=== PATIENT | female | born 1935 | race Caucasian/White ===

== ENCOUNTER 2016-04-17 14:40 | Emergency (ER) | payer OTHER, BC ==
--- NOTE | 2016-04-17 16:22 | EDPHY ---
H & P Time Seen by Provider: 04/17/16 15:51 HPI/ROS: HPI Cold symptoms. 81-year-old female by private vehicle from [facility] assisted [facility]. She reports having cold symptoms which she describes as nasal congestion, postnasal drip and associated cough, worst at night with the postnasal drip ongoing for the last 5 weeks. She reports that 2 weeks ago she started feeling better but then started having a cough again with nasal congestion and rhinorrhea. She also has been feeling fatigued. She is concerned that she has developed pneumonia. ROS: Constitutional: No fever, no chills. N as above. Eyes: No discharge. No changes in vision. ENT: No sore throat. As above. Respiratory: As above. No shortness of breath. Cardiac: No chest pain, no palpitations. Gastrointestinal: No abdominal pain, no vomiting, no diarrhea. Genitourinary: No hematuria. No dysuria or increased frequency with urination. Musculoskeletal: No back pain. No neck pain. No myalgias or arthralgias. Skin: No rashes. Neurological: No headache. No focal weakness or altered sensation. Past medical history: Hypothyroid. Social history: Here by herself. As above. Physical Exam: General Appearance: Alert, no distress. This patient is responding to questions appropriately and in full sentences. This patient appears well- hydrated and well-nourished. Eyes: Pupils equal and round no pallor or injection. No lid edema, erythema or injection. ENT, Mouth: Mucous membranes are moist. The pharyngeal tissues are unremarkable. No edema or swelling. No asymmetry suggestive of abscess. No erythema or exudates. Respiratory: There are no retractions, lungs are clear to auscultation with good air movement bilaterally. Cardiovascular: Regular rate and rhythm. No murmur. Neurological: Motor sensory function is grossly intact. Cranial nerves are normal. Gait is normal. Skin: Warm and dry, no rashes. Musculoskeletal: Neck is supple and nontender. Extremities are symmetrical. All joints range without pain or impingement. Psychiatric: No agitation. No depression. Database: EKG: Imaging: Chest x-ray PA and lateral; the cardiac mediastinal silhouette is unremarkable. No evidence of infiltrate or pneumothorax. Probable bronchitis. No other acute cardiopulmonary disease process noted. Interpreted by me. Procedures: Emergency department course: Patient sent for chest x-ray. Vital signs were reviewed. She was mildly tachycardic in triage. Patient declined IV. 4:50 p.m., patient re-evaluated. She is resting comfortably at this time. I discussed the results of her x-ray with her. Her tachycardia has resolved. She is afebrile. She will be started on azithromycin for possible early pneumonia. She was given 500 mg orally in the emergency department and she also received 200 mg of Tessalon Perle. I discussed admission for observation. She does not want to be admitted at this time. She does feel comfortable going home. She states that it will be easy for her to return to the emergency department should her condition worsen or should she not be improving over the next couple of days. Return to emergency department precautions were thoroughly reviewed with her. Follow-up was discussed. All of her questions were answered. She was discharged in good condition. Differential Diagnosis: The differential diagnosis on this patient includes but is not limited to bronchitis, viral syndrome, pneumonitis. This represents a partial list of diagnoses considered. These considerations are based on history, physical exam , past history, reassessment and diagnostic testing. Smoking Status: Never smoked Constitutional: Initial Vital Signs Temperature (C) 36.5 C 04/17/16 14:42 Heart Rate 102 H 04/17/16 14:42 Respiratory Rate 16 04/17/16 14:42 Blood Pressure 121/82 H 04/17/16 14:42 O2 Sat (%) 95 04/17/16 14:42 O2 Delivery Mode Room Air Allergies/Adverse Reactions: No Known Allergies Allergy (Unverified 04/17/16 14:45) Home Medications: Medication Instructions Recorded Azithromycin [Zithromax] 250 mg PO DAILY #6 tab 04/17/16 Benzonatate [Tessalon Pearles] 100 mg PO TID #12 cap 04/17/16 Levothyroxine 04/17/16 Departure - Departure Disposition: Home, Routine, Self-Care Clinical Impression: Bronchitis, Upper respiratory infection Condition: Good Instructions: Acute Bronchitis (ED), Upper Respiratory Infection (ED) Additional Instructions: Read and follow provided instructions. Take medication as prescribed. Take antibiotics through entire course of treatment. Follow-up with your primary care physician in 2-3 days for re-evaluation even if your symptoms are improving. Take medication as prescribed. Most importantly, return to the emergency department immediately for worsening symptoms such as worsening cough, fever, difficulty breathing or other serious concerns. Return to the emergency department for re-evaluation on Wednesday if you have not had any improvement in your symptoms. Referrals: Mady Valero MD [Primary Care Provider] - As per Instructions Prescriptions: Benzonatate [Tessalon Pearles] 100 mg PO TID #12 cap Azithromycin [Zithromax] 250 mg PO DAILY #6 tab
[2016-04-17] MEDS ORDERED: BENZONATATE 100 MG CAP PO ONE (16:53)
[2016-04-17] MEDS ORDERED: AZITHROMYCIN 250 MG TAB PO ONE (16:53)
--- NOTE | 2016-04-17 17:31 | DX ---
PA lateral chest x-ray 1600 hours. History: Chest pain with cough and congestion for 5 weeks. Weakness. Findings: Heart size and pulmonary vasculature appear to be normal. There is moderate atherosclerotic calcification of the thoracic aorta. There is no consolidation, effusion, or pneumothorax. No signif icant bronchial wall thickening is appreciated. Mild fibrotic streaks are suspected at the left base. Mild degenerative changes are noted mid to lower thoracic spine. Impression: 1. No active cardiopulmonary disease seen. 2. Moderate atherosclerotic calcification of the thoracic aorta noted.
[2016-04-17 17:32] VITALS: BP 124/69; PULSE 80; RESP 18; TEMP 97.9; O2SAT 96
== END 2016-04-17 17:33 | disposition home or self-care (01) ==
DX: J20.9 Acute bronchitis, unspecified (principal); J06.9 Acute upper respiratory infection, unspecified

== ENCOUNTER 2016-09-08 15:41 | Inpatient (IN) | payer OTHER, BC ==
[2016-09-08] MEDS ORDERED: ONDANSETRON 4 MG/2 ML VIAL ONE ×2 (16:00→16:48)
[2016-09-08] MEDS ORDERED: ALTEPLASE 100 MG/100 ML VIAL IV ONE (16:02)
[2016-09-08] MEDS ORDERED: LABETALOL HCL 5 MG/ML 20 ML MDV IVP ONE (16:07)
[2016-09-08 16:08] LABS: % IMMATURE GRANULYOCYTES 0.2 % (0.0-1.1); ABSOLUTE IMMATURE GRANULOCYTES 0.02 10^3/uL (0.00-0.10); ADD DIFF? NO; ADD MORPH? NO; ADD SCAN? NO; ATYPICAL LYMPHOCYTE FLAG 0 (0-99); FRAGMENT RBC FLAG 20 (0-99); HEMATOCRIT 40.5 % (38.0-47.0); HEMOGLOBIN 13.9 g/dL (12.6-16.3); LEFT SHIFT FLG 0 (0-99); LIPEMIA HEMOLYSIS FLAG 90 (0-99); MEAN CELL HEMOGLOBIN 31.8 pg (27.9-34.1); MEAN CELL HEMOGLOBIN CONCENTR. 34.3 g/dL (32.4-36.7); MEAN CELL VOLUME 92.7 fL (81.5-99.8); MEAN PLATELET VOLUME 10.9 fL (8.7-11.7); PLATELET CLUMPS FLAG 10 (0-99); PLATELET COUNT 246 10^3/uL (150-400); RED BLOOD CELL COUNT 4.37 10^6/uL (4.18-5.33); RED CELL DISTRIBUTION WIDTH 13.5 % (11.5-15.2)
--- NOTE | 2016-09-08 16:10 | CPEKG ---
Heart Rate: 83 RR Interval: 723 P-R Interval: 164 QRSD Interval: 82 QT Interval: 396 QTC Interval: 466 P [place]: 63 QRS [place]: 10 T Wave [place]: -7 EKG Severity - BORDERLINE ECG - EKG Impression: SINUS ARRHYTHMIA, RATE 70-107 EKG Impression: BORDERLINE T ABNORMALITIES, INFERIOR LEADS Electronically Signed By: David Flanagan 08-Sep-2016 21:03:46
[2016-09-08 16:13] LABS: PROTIME(PATIENT) 13.1 SEC (12.0-15.0)
--- NOTE | 2016-09-08 16:21 | EDPHY ---
HPI/HX/ROS/PE/MDM Narrative: CHIEF COMPLAINT: Stroke alert, vertigo, vomiting HISTORY OF PRESENT ILLNESS: The patient is a 81 y/o female, with a history of hypertension, arriving emergently via EMS as a stroke alert due to abrupt onset vertigo, pronounced nystagmus, and vomiting at 14:15 today, 1.5 hours ago. She has a history of vertigo with tinnitus, but has never had persistent associated vomiting with it. EMS noticed left lateral gaze and upward gaze nystagmus upon their arrival. She complains of some associated abdominal pain. She denies associated headache , weakness, paresthesia, or speech difficulty. EMS administered 4mg IV Zofran and 5mg IV Valium for symptoms with some improvement in her vomiting. Her prehospital BCL was 150. She is not on anticoagulants. No fever, chills, chest pain, shortness of breath, palpitations, diarrhea, urinary complaints, headache, lightheadedness. REVIEW OF SYSTEMS: Full review of systems is limited on initial presentation secondary to the patient's clinical condition. PAST MEDICAL HISTORY: Hypertension - no meds, hypothyroidism, vertigo Prior medical records reviewed including ED visit 04/17/16 for cold symptoms. SOCIAL HISTORY: Friend at bedside is power of document review attorney, lives at [facility] VITAL SIGNS: Reviewed by me GENERAL: Elderly female, actively vomiting and covered in non-bloody emesis HEENT: Atraumatic. Eyes: No icterus, no injection. Mouth: moist mucous membranes. No erythema or lesions. Neck: supple with no adenopathy. LUNGS: Clear to auscultation bilaterally, no wheezes, rhonchi or rales. CARDIAC: Regular rate and rhythm with occasional ectopic beat, no rubs, murmurs or gallops. ABDOMEN: Soft, diffuse mild tenderness, nondistended, bowel sounds normal. BACK: No CVA tenderness. EXTREMITIES: No trauma. No edema. Range of motion is normal throughout. NEURO: Alert and oriented, left lateral gaze and upward gaze nystagmus with slow nystagmus to the right. Normal sjptbg-ib-plks, normal yhpdu-vo-rvnf heel-to -tejeda, slight difficulty with hjdn-od-zndrb ctdo-rh-vufh. SKIN: Warm and dry, no rash. PSYCHIATRIC: Normal mentation, no agitation. Portions of this note were transcribed by a medical records receptionist. I personally performed a history, physical exam, medical decision making, and confirmed accuracy of information the transcribed note. ED Course: 1541: Met EMS upon arrival and took report while I examined patient in the hallway. This is an 81 y/o female who developed acute onset vertigo with persistent vomiting 1.5 hours prior to arrival here. She has no extremity weakness, facial droop, or difficulty with speech on initial exam. She does have pronounced left lateral gaze and upward gaze nystagmus, which concerned EMS for possible stroke. She is actively vomiting. 1544: Patient sent directly to CT for urgent head CT. Plan for labs, EKG, chest x-ray upon her return. 1555: Consulted with Dr. Virginia Lizarraga, [place] neurologist. She will assess patient via stroke robot. I have not yet received head CT findings from radiology. 1556: Reevaluated patient. She continues to vomit and has severe nystagmus. 4mg IV Zofran administered. 1559: Dr. Lizarraga assessed patient via robot. She recommended TPA administration and discussed risks and benefits with the patient. Patient became quite somnolent during this discussion and was unable to give consent to this procedure. This may be due to the Valium she received from EMS. 1604: The patient now has a fixed gaze to the right and is difficult to rouse. Dr. Lizarraga would like a CTA of her head and neck here while we are mixing the TPA. If CTA shows posterior clot, she will likely require air transport to [facility]. Patient's most recent BP is 201/121. Dr. Lizarraga request 10mg labetalol and nicardipine drip with a target BP of 180/110 prior to TPA administration. 1607: My brief preliminary review of patient's head CT does not show obvious bleed or other acute finding. I continue to await radiologist's read. 1609: Friend arrived at bedside and reported patient had "stomach problems" and nausea throughout the weekend. She was apparently doing a yoga pose with her head down when her symptoms began today. 1611: Normal head CT per Dr. Schultz, radiologist. 1613: BP 164/89 after labetalol. We will not administer the nicardipine drip at this time. Plan to administer TPA as soon as it is mixed. 1627: Consulted with Dr. Agudelo, neurology. He will review scans and follow patient if she is admitted here. 1636: Patient returned from CT. Her BP is elevated at 216/113. We will administer the nicardipine drip as originally planned. TPA has not yet been administered. The 12 lead EKG was interpreted by myself. Sinus arrhythmia rate 83. See hard copy and/or "tracemaster" electronic copy for interpretation. 1648: No acute clot per Dr. Schultz on CTA. FMD on internal carotids. Asked to re-evaluate the patient my nursing staff. Patient is much more awake than previously. She reports feeling slightly nauseous but no longer has nystagmus and no longer has dizziness. She is not vomiting. Blood pressure is 163/81. 1703: Consulted with Dr. Lizarraga, neurology. As the patient's symptoms have largely resolved e does not recommend administering TPA unless she has continued dizziness; as TPA has not yet been administered by nursing staff yet despite prior order we will hold off on TPA. 1712: Spoke with Dr. Dupree, hospitalist. He accepts admission. MDM: Differential diagnoses the patient's presenting complaints was considered including but not limited to intracranial injury, TIA, ischemic cerebrovascular accident, hemorrhagic cerebrovascular accident, posterior circulation stroke, vertigo, benign positional vertigo, hypoglycemia, complex migraine, metastases, tumor, seizure, or electrolyte abnormality - Data Points Imaging Results: Imaging Impressions Head CT 09/08/16 15:46 Impression: Negative. No intracranial hemorrhage or evidence of cortical ischemia. Findings discussed with Emergency Department physician, Dr. Greer Smith, on September 08, 2016 at 1610 hours. Head CTA 09/08/16 16:14 Impression: 1. Normal intracranial arterial circulation. No evidence of embolic disease or aneurysm. 2. Patent venous system. Findings discussed with Emergency Department physician, Dr. Greer Smith, on September 08, 2016 at 1649 hours. Neck CTA 09/08/16 16:14 Impression: 1. Widely patent bilateral vertebral arteries and posterior circulation. 2. Mild to moderate stenosis (less than 50%) left subclavian artery. 3. Mild bilateral carotid bulb and internal carotid artery plaque resulting in less than 30% stenosis on the left and less than 40% stenosis on the right. 4. 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 No dissection. Findings discussed with Emergency Department physician, Dr. Greer Smith, on September 08, 2016 at 1649 hours. Measurement of carotid stenosis is based on the residual internal carotid diameter with [place] Symptomatic Carotid Endarterectomy Trial (NASCET) based stenosis levels. Imaging: Discussed imaging studies w/ call center assistant Radiologist, I viewed and interpreted images myself Laboratory Results: Laboratory Results 09/08/16 15:49 09/08/16 15:49 09/08/16 09/08/16 09/08/16 15:49 15:49 15:49 WBC 8.05 10^3/uL 10^3/uL (3.80-9.50) RBC 4.37 10^6/uL 10^6/uL (4.18-5.33) Hgb 13.9 g/dL g/dL (12.6-16.3) POC Hgb Hct 40.5 % % (38.0-47.0) POC Hct MCV 92.7 fL fL (81.5-99.8) MCH 31.8 pg pg (27.9-34.1) MCHC 34.3 g/dL g/dL (32.4-36.7) RDW 13.5 % % (11.5-15.2) Plt Count 246 10^3/uL 10^3/uL (150-400) MPV 10.9 fL fL (8.7-11.7) Neut % (Auto) 65.7 % % (39.3-74.2) Lymph % (Auto) 23.6 % % (15.0-45.0) [place] % (Auto) 8.0 % % (4.5-13.0) Eos % (Auto) 2.0 % % (0.6-7.6) Baso % (Auto) 0.5 % % (0.3-1.7) Nucleat RBC Rel Count 0.0 % % (0.0-0.2) Absolute Neuts (auto) 5.29 10^3/uL 10^3/uL (1.70-6.50) Absolute Lymphs (auto) 1.90 10^3/uL 10^3/uL (1.00-3.00) Absolute Monos (auto) 0.64 10^3/uL 10^3/uL (0.30-0.80) Absolute Eos (auto) 0.16 10^3/uL 10^3/uL (0.03-0.40) Absolute Basos (auto) 0.04 10^3/uL 10^3/uL (0.02-0.10) Absolute Nucleated RBC 0.00 10^3/uL 10^3/uL (0-0.01) Immature Gran % 0.2 % % (0.0-1.1) Immature Gran # 0.02 10^3/uL 10^3/uL (0.00-0.10) PT 13.1 SEC SEC (12.0-15.0) INR 1.00 (0.83-1.16) POC Sodium Sodium 130 mEq/L L mEq/L (134-144) POC Potassium Potassium 3.6 mEq/L mEq/L (3.5-5.2) POC Chloride Chloride 98 mEq/L mEq/L (97-110) Carbon Dioxide 22 mEq/l mEq/l (22-31) Anion Gap 10 mEq/L mEq/L (8-16) POC BUN BUN 17 mg/dL mg/dL (7-23) Creatinine 0.7 mg/dL mg/dL (0.6-1.0) POC Creatinine Estimated GFR > 60 Glucose 115 mg/dL H mg/dL (70-100) POC Glucose Calcium 9.1 mg/dL mg/dL (8.5-10.4) Troponin I < 0.012 ng/mL ng/mL (0-0.034) 09/08/16 15:42 WBC RBC Hgb POC Hgb 15.3 gm/dL gm/dL (12.3-15.9) Hct POC Hct 45 % % (35.5-47.5) MCV MCH MCHC RDW Plt Count MPV Neut % (Auto) Lymph % (Auto) [place] % (Auto) Eos % (Auto) Baso % (Auto) Nucleat RBC Rel Count Absolute Neuts (auto) Absolute Lymphs (auto) Absolute Monos (auto) Absolute Eos (auto) Absolute Basos (auto) Absolute Nucleated RBC Immature Gran % Immature Gran # PT INR POC Sodium 138 mEq/L mEq/L (134-144) Sodium POC Potassium 3.3 mEq/L mEq/L (3.3-5.0) Potassium POC Chloride 98 mEq/L mEq/L (96-108) Chloride Carbon Dioxide Anion Gap POC BUN 17 mg/dL mg/dL (7-23) BUN Creatinine POC Creatinine 0.7 mg/dL mg/dL (0.6-1.2) Estimated GFR Glucose POC Glucose 123 mg/dL H mg/dL (70-100) Calcium Troponin I Medications Given: Discontinued Medications Labetalol HCl (Trandate Injection) 10 mg IVP ONCE ONE Stop: 09/08/16 16:08 Last Admin: 09/08/16 16:10 Dose: 10 mg Promethazine HCl (Phenergan) 12.5 mg IVP ONCE ONE Stop: 09/08/16 17:47 Last Admin: 09/08/16 17:05 Dose: 12.5 mg Point of Care Test Results: 09/08/16 15:42 POC Sodium 138 POC Potassium 3.3 POC Chloride 98 POC BUN 17 POC Creatinine 0.7 POC Glucose 123 H General Initial Vital Signs: Initial Vital Signs Heart Rate 85 09/08/16 15:50 Respiratory Rate 18 09/08/16 15:50 Blood Pressure 195/115 H 09/08/16 15:50 O2 Sat (%) 98 09/08/16 15:50 O2 Delivery Mode Nasal Cannula O2 (L/minute) 5 Allergies/Adverse Reactions: penicillin G Allergy (Verified 09/08/16 18:59) Home Medications: Medication Instructions Recorded Levothyroxine [Synthroid 175 mcg 175 mcg PO DAILY06 04/17/16 (*)] Departure - Departure Disposition: [facility] Acute Clinical Impression: Vertigo, Nausea & vomiting, Nystagmus Condition: Fair Report Scribed for: Greer Smith Report Scribed by: Jennifer Guevara Date of Report: 09/08/16 Time of Report: 20:16
[2016-09-08 16:25] LABS: ANION GAP 10 mEq/L (8-16); CALCIUM 9.1 mg/dL (8.5-10.4); CARBON DIOXIDE 22 mEq/l (22-31); CHLORIDE 98 mEq/L (97-110); CREATININE 0.7 mg/dL (0.6-1.0); GLOMERULAR FILTRATION RATE > 60; GLUCOSE 115 mg/dL (70-100); POTASSIUM 3.6 mEq/L (3.5-5.2); SODIUM 130 mEq/L (134-144)
[2016-09-08 16:37] LABS: TROPONIN I < 0.012 ng/mL (0-0.034)
[2016-09-08] MEDS ORDERED: niCARdipine/NACL/200 ML BAG IV ONE (16:37)
[2016-09-08] MEDS ORDERED: PROMETHAZINE HCL 25 MG/ML INJ ONE (16:54)
[2016-09-08] MEDS ORDERED: niCARdipine/NACL 200 ML IV SCH (17:30)
[2016-09-08] MEDS ORDERED: PROMETHAZINE HCL 25 MG/ML INJ IVP ONE ×2 (17:46→21:25)
[2016-09-08] MEDS ORDERED: ACETAMINOPHEN 325 MG TAB PO PRN (18:44)
[2016-09-08] MEDS ORDERED: ONDANSETRON DISINTEGRATING 4 MG TAB PO PRN (18:44)
--- NOTE | 2016-09-08 20:04 | GHP ---
[f rep st] HISTORY AND PHYSICAL DATE OF ADMISSION: 09/08/2016 HISTORY OF PRESENT ILLNESS: This patient is a pleasant 81-year-old female with a history of untreat ed hypertension and hypothyroidism, who presents with sudden onset dizziness described as if the jany m is spinning, and she was also unsteady on her feet listing. She does not remember to which side. She came in as a stroke alert. She was noted to be markedly hypertensive at 195/115. She had a vi sit with [facility] and IV thrombolytics were recommended. While they were busy controlling her blood pressure, her symptoms improved and she did not get IV lytics. When I speak with the patient, she is pretty much exactly at the 3 hour and 15 minute luana from the onset of symptoms and they have largely resolved. She says her dizziness has improved. She was not ed to have nystagmus in the emergency department, and she has minimal nystagmus with right gaze and otherwise does not feel unsteady on her feet or dizzy. She notes that during this time of her sympt oms which came on during a yoga class where she was doing a "cat pose," she had no focal weakness or numbness, although she was unable to be steady on her feet. She had a previous episode of inner ea r-like problems, and she describes a scenario in the remote past as having received Severo-Hallpike man euvers with improvement in her symptoms. She denies a history of vascular problems or diabetes. No fever, chills, nausea, vomiting, or diarrhea. REVIEW OF SYMPTOMS: A complete 10-point review of systems was conducted and negative, except as not ed in the HPI. PAST SURGICAL/MEDICAL HISTORY: 1. Bilateral knee replacements. 2. Periprosthetic fracture. 3. Hypertension, not on medicines. 4. Subtotal thyroidectomy a number of years ago, now on levothyroxine. ALLERGIES: No known drug allergies. HOME MEDICATIONS: Levothyroxine. SOCIAL HISTORY: She lives locally. Family at the bedside. No tobacco. No alcohol. FAMILY HISTORY: Daughter is present and healthy at the bedside. PHYSICAL EXAMINATION: PRESENTING VITAL SIGNS: Blood pressure 195/115, pulse 85, breathing 18 per m inute, 98% on 4 L. She is also afebrile at 36.8. Blood pressure now 161/77. GENERAL: In no acute distress. HEENT: Sclerae anicteric. Oropharynx clear. Mucous membranes are moist. NECK: Supple, without lymphadenopathy or JVD. LUNGS: Clear to auscultation bilaterally. HEART: S1, S2 without murmurs. ABDOMEN: Soft, nontender, nondistended. LOWER EXTREMITIES: Without edema. Calves are nontender. SKIN: Without rash. NEUROLOGIC: Shows very mild nystagmus with rightward gaze. Upper extremity and lower extremity str ength and sensation 5/5 bilaterally. She has bilateral slowing with [id number], but there is no significant deficit. She is able to name objects, follow commands and repeat phrases. She has no dysarthria. I did not watch her walk. LABS: White count 8, hematocrit 40, platelets are 246,000. Coags normal. Sodium 130, potassium 3. 6, chloride 98, bicarb 22, BUN 17, creatinine 0.7, glucose 115. Troponin less than 0.012. IMAGING: EKG, interpreted by me, shows sinus arrhythmia at 83, with normal axis. Pretty deep T-wav e inversion in 3, but otherwise unremarkable. There is no prior for comparison. Noncontrast head C T shows no intracranial hemorrhage or cortical ischemia. Head CTA shows normal intracranial arteria l circulation. No evidence of embolic disease or aneurysm. Patent venous system. CTA of the neck shows patent vertebral arteries and posterior circulation. Mild to moderate stenosis of the left [place] bclavian artery. Mild bilateral carotid bulb and internal carotid plaque resulting in less than 30% stenosis in the left and less than 40% on the right. 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 I discussed the case Dr. Greer Smith. ASSESSMENT AND PLAN: An 81-year-old female who presents with acute onset dizziness and unsteadiness on her feet, concerning for possible posterior circulation stroke. 1. Question stroke. I think this represents acute vestibulitis rather than a neurovascular event. Ultimately, this cannot be decided without an MRI. She presented within the time frame for thrombo lytics, but her high blood pressure was an absolute contraindication. Once her blood pressure was u nder control, her symptoms started to improve. I am going to order an MRI at this point in time. I f there is no evidence of stroke, given her minimal other vascular risk factors other than age, we w ill not complete the other typical stroke workup, such as echocardiogram, A1c, lipid profile, etc. 2. Hypothyroidism. Continue levothyroxine. 3. Hyponatremia. This is mild. Will repeat it in the morning. She does not appear to have sympto ms. I do not think this is contributing to her current presentation. 4. Prophylaxis. The patient is moderate risk if in the hospital longer than 24 hours. Otherwise, I would go ahead and just provide SCDs. 5. Sinus arrhythmia. This is a benign cardiac condition. 6. Hypertension. I have discussed this with the ICU nurses. For now, will try to wean her nicardi pine down. She may be a candidate for antihypertensives as an outpatient, but for now, will just tr y and wean her nicardipine down to 0. /[id number]/MODL
[2016-09-08] MEDS: ONDANSETRON 4 MG/2 ML VIAL IVP PRN (20:36)
[2016-09-09] MEDS: ASPIRIN 81 MG CHEWABLE TAB PO SCH ×2 (00:05→08:01)
[2016-09-09 06:11] LABS: ANION GAP 8 mEq/L (8-16); CALCIUM 8.5 mg/dL (8.5-10.4); CARBON DIOXIDE 25 mEq/l (22-31); CHLORIDE 99 mEq/L (97-110); CREATININE 0.7 mg/dL (0.6-1.0); GLOMERULAR FILTRATION RATE > 60; GLUCOSE 101 mg/dL (70-100); POTASSIUM 4.3 mEq/L (3.5-5.2); SODIUM 132 mEq/L (134-144)
[2016-09-09] MEDS: LEVOTHYROXINE 175 MCG TAB PO SCH (06:19)
[2016-09-09] MEDS: ONDANSETRON 4 MG/2 ML VIAL IVP PRN (06:19)
--- NOTE | 2016-09-09 13:52 | HOSPPROG ---
Hospitalist Progress Note Assessment/Plan: * acute vertigo * patient does has previous diagnosis of benign positional vertigo and underwent maneuvers to help by ENT 15 years ago * the symptom started yoga class * MRI is negative for acute CVA * most likely benign positional vertigo * still a little bit unsteady and thus will keep 1 more night. physical therapist trained in inner ear maneuvers will be on tomorrow to help * elevated blood pressure * probably related to stress as nausea vomiting * better * continue to monitor * hyponatremia * could be related to vomiting * will check a urine sodium * gentle hydration * hypothyroidism Subjective: feel significantly better but still is somewhat dizzy and unsteady Objective: Vital Signs Temp Pulse Resp BP Pulse Ox 36.6 C 70 17 117/57 L 91 L 09/09/16 08:00 09/09/16 10:00 09/09/16 10:00 09/09/16 10:00 09/09/16 10:00 Laboratory Results 09/09/16 05:05 09/08/16 09/09/16 09/10/16 05:59 05:59 05:59 Intake Total 564 500 Output Total 450 Balance 114 500 PT 13.1 SEC (12.0-15.0) 09/08/16 15:49 INR 1.00 (0.83-1.16) 09/08/16 15:49 previous records reviewed tele personally viewed interpreted normal sinus rhythm patient is new to [place] - Physical Exam Constitutional: no apparent distress, appears nourished, not in pain Eyes: anicteric sclera, EOMI, other ( no nystagmus) Cardiovascular: regular rate and rhythym, no murmur, rub, or gallop Respiratory: no respiratory distress, no rales or rhonchi, clear to auscultation Gastrointestinal: normoactive bowel sounds, soft, non-tender abdomen, no palpable masses Skin: warm Neurologic: AAOx3, CN II-XII Intact Psychiatric: interacting appropriately, not anxious, not encephalopathic, thought process linear ICD10 Worksheet Patient Problems: Problems Problem Status Onset Nausea & vomiting Acute Nystagmus Acute Vertigo Acute
[2016-09-09] MEDS: NS 1,000 ML IV SCH (14:55)
[2016-09-10] MEDS: NS 1,000 ML IV SCH (03:20)
[2016-09-10 05:08] LABS: % IMMATURE GRANULYOCYTES 0.4 % (0.0-1.1); ABSOLUTE IMMATURE GRANULOCYTES 0.02 10^3/uL (0.00-0.10); ADD DIFF? NO; ADD MORPH? NO; ADD SCAN? NO; ATYPICAL LYMPHOCYTE FLAG 40 (0-99); FRAGMENT RBC FLAG 0 (0-99); HEMATOCRIT 36.7 % (38.0-47.0); HEMOGLOBIN 12.3 g/dL (12.6-16.3); LEFT SHIFT FLG 0 (0-99); LIPEMIA HEMOLYSIS FLAG 80 (0-99); MEAN CELL HEMOGLOBIN 31.5 pg (27.9-34.1); MEAN CELL HEMOGLOBIN CONCENTR. 33.5 g/dL (32.4-36.7); MEAN CELL VOLUME 93.9 fL (81.5-99.8); MEAN PLATELET VOLUME 10.9 fL (8.7-11.7); PLATELET CLUMPS FLAG 0 (0-99); PLATELET COUNT 201 10^3/uL (150-400); RED BLOOD CELL COUNT 3.91 10^6/uL (4.18-5.33); RED CELL DISTRIBUTION WIDTH 13.6 % (11.5-15.2)
[2016-09-10 06:09] LABS: ANION GAP 7 mEq/L (8-16); CALCIUM 8.4 mg/dL (8.5-10.4); CARBON DIOXIDE 25 mEq/l (22-31); CHLORIDE 101 mEq/L (97-110); CREATININE 0.7 mg/dL (0.6-1.0); GLOMERULAR FILTRATION RATE > 60; GLUCOSE 87 mg/dL (70-100); POTASSIUM 4.4 mEq/L (3.5-5.2); SODIUM 133 mEq/L (134-144)
[2016-09-10] MEDS: LEVOTHYROXINE 175 MCG TAB PO SCH (08:03)
[2016-09-10] MEDS: ASPIRIN 81 MG CHEWABLE TAB PO SCH (08:03)
[2016-09-10] MEDS: ONDANSETRON 4 MG/2 ML VIAL IVP PRN (10:55)
--- NOTE | 2016-09-10 15:22 | HOSPPROG ---
Hospitalist Progress Note Assessment/Plan: 81 yo F w hypothyroidism here w acute onset vertigo. ?CVA: neg MRI minimal to no vascular disease on CTA no AF on tele not a stroke BPPV: improving but still unsteady on feet continue PT neuro consult htn: has labile bp's outpt follow up proph: scd's dispo: home when improved ambulation Subjective: still unsteady on feet. no events on telemetry (interp by me) Objective: Vital Signs Temp Pulse Resp BP Pulse Ox 36.8 C 77 8 L 183/87 H 93 09/10/16 07:44 09/10/16 07:44 09/10/16 07:44 09/10/16 10:10 09/10/16 07:44 Laboratory Results 09/10/16 04:22 09/10/16 04:22 09/09/16 09/10/16 09/11/16 05:59 05:59 05:59 Intake Total 1075 Output Total 1300 500 Balance -225 -500 PT 13.1 SEC (12.0-15.0) 09/08/16 15:49 INR 1.00 (0.83-1.16) 09/08/16 15:49 - Physical Exam Constitutional: no apparent distress, appears nourished Eyes: PERRL, anicteric sclera Ears, Nose, Mouth, Throat: moist mucous membranes, hearing normal Cardiovascular: regular rate and rhythym, no murmur, rub, or gallop Respiratory: no respiratory distress, clear to auscultation Gastrointestinal: normoactive bowel sounds, soft, non-tender abdomen Genitourinary: no bladder fullness, No kraus in urethra Skin: warm, normal color Musculoskeletal: full muscle strength, no muscle tenderness Neurologic: AAOx3, other (no nystagmus) Psychiatric: interacting appropriately, not anxious Lymph, Heme, Immunologic: no cervical LAD ICD10 Worksheet Patient Problems: Problems Problem Status Onset Nausea & vomiting Acute Nystagmus Acute Vertigo Acute
[2016-09-10 16:14] VITALS: RESP 16
[2016-09-11] MEDS: LEVOTHYROXINE 175 MCG TAB PO SCH (07:21)
--- NOTE | 2016-09-11 08:17 | PDCONSULT ---
Metal [employer] Note: HOSPITAL NEUROLOGY CONSULT REQUESTING: Martinez Dupree MD REASON: vertigo HPI: This is an 81 year old right-handed woman with a history of hypertension, tinnitus, prior episodic peripheral vertigo who presented to our ED on September 08 with abrupt onset vertigo, nausea and gait instability. She was at yoga, and was trying a new inverted position. Upon transitioning to this inverted position, she developed sudden onset room spinning dizziness and nausea/ vomiting. She went back to an upright position and tried to walk out of the class and noted she was unsteady on her feet. This inspired transport to our ED. She went through the code stroke process and was about to get IV rtPA, but while trying to lower her BP her symptoms improved, so she did not receive thrombolytics. She was admitted and a comprehensive stroke workup was done. CTA head/neck showed some mild BICA stenosis without hemodynamic significance and without ulcerative plaque. Her posterior circulation was found to be widely patent. An MRI brain wo was done showing chronic microvascular ischemic change in the subcortical/periventricular white matter, but no acute ischemia, no posterior fossa masses and no brainstem/cerebellar pathology. During her hospital course, she had anti-emetics for nausea. Symptoms slowly improved. She has felt lingering unsteadiness on her feet, but she states this is getting better every day. She has been using a walker while n hospital for gait stability, but feels she is safe to go home. She denies any weakness, sensory loss, visual disturbance, speech/language disturbance, MANJARREZ. She feels more sensitive to loud sounds (even moreso than before). She also feels her chronic binaural tinnitus has gotten worse since this episode began. She denies any ear pain or ear fullness. No fevers, chills , recent illnesses. No head or neck trauma. She can't identify if visual fixation made her symptoms better or worse, though, she states she tended to feel better in the dark or with eyes closed. ROS: As per the HPI, otherwise a complete 12 point ROS was performed and is negative ALLERGIES AND MEDS: As recorded in the EMR - reviewed and reconciled PFSH: As per the intake H&P by Dr. Dupree from 09/08 EXAM: VS reviewed in EMR GEN: WDWN laying in NAD HEENT: NCAT, sclera anicteric, conjunctiva not injected, MMM, oropharynx clear, no scalp tenderness NECK: supple, nontender, no meningismus CV: RRR s1 s2 wo m/r/c/g. Carotid pulses 2+ wo bruit NEURO: MS: awake, alert, oriented to all spheres. Speech nondysarthric. No language disturbance. Follows commands. Attends to both sides. Recent/remote memory grossly intact. Mood euthymic. Good fund of knowledge. CN: pupils 3mm round and reactive. Fundi with sharp discs. VFF. Primary gaze centered. Full ocular motility. On right lateral gaze she has right beating jerk nystagmus with a subtle rotatory component - this fatigues with repeated testing. Facial sensation preserved. Face symmetric. Hearing grossly intact to finger rub. Palatoglossal movements intact. Shoulder shrug and head turn strong. MOTOR: normal bulk/tone. No adventitial movements. Full power throughout. SENSORY: intact LT/PP throughout and symmetric. No extinction. COORD: no ataxia FN/HS. Stella preserved. Romberg pos. REFLEX: plantars down. No clonus. Absent ankle jerks and patellars, BUE DTRS 2 /4. GAIT: rises unassisted. Narrow base. Takes a slow and cautious gait pattern with arms outstretched, deliberate steps, but no gait ataxia or other abnormal gait patterns. 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 IMPRESSION AND RECOMMENDATIONS: // PERIPHERAL VESTIBULOPATHY/VERTIGO Patient with abrupt onset persistent vertigo that is improving without much intervention other than supportive measures. She has had an exhaustive neurologic workup without any evidence of structural or acute ischemic lesion of the central vestibular apparatus. She has right beating jerk nystagmus with a subtle rotatory component with right gaze, indicating possible pathology of the left-sided peripheral vestibular apparatus. No other findings on neurologic exam. Constant duration of symptoms would argue against BPPV. She has baseline tinnitus and sound sensitivity, worsened with this episode. Recommend outpatient evaluation with ENT/audiology for expert evaluation and diagnosis of peripheral vertigo etiology. Recommend vestibular rehab with PT. Gait safety eval with PT for home safety. Cont with antiemetics as needed. Don't think vestibular suppressant medications would be of much benefit since her vertigo has resolved. Will sign off. Recall PRN.
[2016-09-11 08:34] VITALS: BP 166/77; PULSE 82; TEMP 97.8; O2SAT 95
[2016-09-11] MEDS: ASPIRIN 81 MG CHEWABLE TAB PO SCH (10:13)
--- NOTE | 2016-09-11 10:56 | HOSPPROG ---
Hospitalist Progress Note Assessment/Plan: 81 yo F w hypothyroidism here w acute onset vertigo. ?CVA: neg MRI minimal to no vascular disease on CTA no AF on tele not a stroke BPPV: improving but still unsteady on feet continue PT neuro consult htn: has labile bp's outpt follow up proph: scd's dispo: home today > 30 minutes Subjective: feels better. anxious for dc. seen by neurology Objective: Vital Signs Temp Pulse Resp BP Pulse Ox 36.6 C 82 16 166/77 H 95 09/11/16 08:34 09/11/16 08:34 09/11/16 08:34 09/11/16 08:34 09/11/16 08:34 Laboratory Results 09/10/16 04:22 09/10/16 04:22 09/10/16 09/11/16 09/12/16 05:59 05:59 05:59 Intake Total 1075 1750 550 Output Total 1300 1402 Balance -225 348 550 PT 13.1 SEC (12.0-15.0) 09/08/16 15:49 INR 1.00 (0.83-1.16) 09/08/16 15:49 - Physical Exam Constitutional: no apparent distress, appears nourished Eyes: PERRL, anicteric sclera Ears, Nose, Mouth, Throat: moist mucous membranes, hearing normal Cardiovascular: regular rate and rhythym, no murmur, rub, or gallop Respiratory: no respiratory distress, no rales or rhonchi Gastrointestinal: normoactive bowel sounds, soft, non-tender abdomen Genitourinary: No kraus in urethra Skin: warm, normal color Musculoskeletal: full muscle strength, no muscle tenderness Neurologic: AAOx3 ICD10 Worksheet Patient Problems: Problems Problem Status Onset Nausea & vomiting Acute Nystagmus Acute Vertigo Acute
--- NOTE | 2016-09-11 10:56 | PDIAF ---
- Diagnosis Diagnosis: BPPV Code Status: Full Code - Medication Management Discharge Medications: Medications to Continue on Transfer Levothyroxine [Synthroid 175 mcg (*)] 175 mcg PO DAILY06 04/17/16 [Last Taken ] Discharge Medications: Refer to the Discharge Home Medication list for PRN reason. - Orders Services needed: Physical Therapy, Occupational Therapy - Follow Up Care Current Providers and Referrals: Mady Valero MD [Primary Care Provider] - As per Instructions
--- NOTE | 2016-09-11 12:23 | GDS ---
[f rep st] DISCHARGE SUMMARY DISCHARGE DIAGNOSES: 1. Benign positional vertigo. 2. Transient, intermittent hypertension. 3. Hypothyroidism. HOSPITAL COURSE: Please see admission history and physical by Dr. Martinez Dupere. The patient pres ented with vertigo and no evidence of bleed on a noncontrast head CT. Given her age and risk factor profile, and marked hypertension on presentation, there was a plan to give her IV TPA, however, her blood pressure is too high, and in the midst of controlling her symptoms began to improve, and so T PA was held off. She was seen by [facility] at that time, in conjunction with Dr. Greer ibanez of the emergency department. She had an MRI which showed no evidence of stroke, she had a head and neck CTA showing minimal vascular disease. She had PT, OT and with conservative therapy she continued to improve, and she was seen by Neurology on the day of the day of discharge, who corroborated that this is consistent with benign positional vertigo. She is discharged home with outpatient OT and PT, and referral to ENT. /[id number]/MOD
== END 2016-09-11 12:19 | disposition home or self-care (01) | DRG 149 ==
LOC: EDUNIT# → F2N 18:10 → F3E 09-09 13:40 → OBSVTOIN 09-09 16:39
PROVIDERS: ADMIT Internal Medicine; ATTEND Internal Medicine
DX: H81.10 Benign paroxysmal vertigo, unspecified ear (principal); I10 Essential (primary) hypertension; E03.9 Hypothyroidism, unspecified; Z96.653 Presence of artificial knee joint, bilateral
CPT/HCPCS: 82947-QW; 96374; 97110-GP; 97116-GP; 97161-GP; 97165-GO; G0378; G8978-GP-CI; G8978-GP-CK; G8979-GP-CI; G8980-GP-CI; G8987-GO-CI; G8988-GO-CI; J2405; J2550; J2997; J3490

== ENCOUNTER → 2016-10-05 | Outpatient (CLI) | payer OTHER, BC | LOC: BMCIMAGING 10:12 | PROVIDERS: ATTEND Orthopaedic Surgery | DX: Z96.652 Presence of left artificial knee joint (principal) ==

== ENCOUNTER → 2017-06-30 | Outpatient (CLI) | payer OTHER, BC | LOC: BHFA 08:30 | PROVIDERS: ATTEND Internal Medicine Cardiovascular Disease | DX: R55 Syncope and collapse (principal) ==

== ENCOUNTER → 2017-07-06 | Outpatient (CLI) | payer OTHER, BC | LOC: BHFA 09:30 | PROVIDERS: ATTEND Internal Medicine Cardiovascular Disease | DX: R55 Syncope and collapse (principal) | CPT/HCPCS: 78452; 93017; A9500; J2785 ==

== ENCOUNTER → 2017-08-24 | Outpatient (CLI) | payer OTHER, BC ==
[~2017-08-24] MED LIST: IOPAMIDOL (ISOVUE 370) 100 ML BTL IV ONE
== END ==
LOC: FIMAGING 14:10
PROVIDERS: ATTEND Internal Medicine Cardiovascular Disease
DX: I77.3 Arterial fibromuscular dysplasia (principal); I67.1 Cerebral aneurysm, nonruptured; I77.1 Stricture of artery
CPT/HCPCS: 70496; 70498; Q9967

== ENCOUNTER 2018-01-31 08:55 | Day surgery (SDC) | payer OTHER, BC ==
[2018-01-31] MEDS ORDERED: LIDOCAINE 1% 300 MG/30 ML SDV SC ONE (08:59)
--- NOTE | 2018-01-31 11:37 | PDGENHP ---
History & Physical Chief Complaint: patient with multiple episodes of syncope History of Present Illness: 82 year old lady with history of multiple syncopal episodes needs. She has episodes of rapid heart beat with associated shortness of breath and lightheadedness. patient would benefit from loop recorder. Pertinent Past, Social, Family History: no alcohol or smoking Relevant Physical Exam: vital signs stable and heart regular rate rhythm. Lungs clear to auscultation. Abdomen reveals normal bowel sounds non tender non distended. Cardiorespiratory Assessment: See above...
--- NOTE | 2018-01-31 18:17 | CPIP ---
DATE OF PROCEDURE: 01/31/2018 PROCEDURE PERFORMED: Loop recorder implantation. INDICATION FOR THE PROCEDURE: Recurrent syncope, which is unexplained in an elderly place with risk factors for cardiac rhythm disturbance. She has noted PVCs therefore placing her at risk for ventric ular tachycardia, as well as short salvos of SVT. The device is being placed to rule out significant tachy or leslie dysrhythmia, significant sinus arrest or pauses, or intermittent heart block as a cau se for the patient's syncopal events. IMPLANTS: The device is a [employer] Confirm RX, serial #[id number]. DESCRIPTION OF PROCEDURE: After informed consent was obtained, n.p.o. status was confirmed, the gila ent was taken to the cardiovascular center. The parasternal region on the left side was cleaned, pre pped, and draped in sterile fashion. Approximately 8 cc of 1% lidocaine was utilized for local anest hesia. The skin was sharply incised with a #10 blade. The dissection tool that comes with the device was th en used to form a tract underneath the skin and the Confirm Rx device was injected under the skin and the skin was closed. Hemostasis was achieved and the skin was again closed with 3 interrupted stapl es with excellent wound edge apposition and hemostasis documented. Patient tolerated the procedure w ell. FINAL IMPRESSION: Successful loop recorder implantation. Device was set to detect tachycardia rates above 150, bradycardia at rates below 40, and pauses of more than 3 seconds. The patient has also b een instructed on how to interact with the device to lock in any episodes of cardiac rhythm disturban ce around the times of syncope or near syncope. /[id number]/MODL
== END 2018-01-31 11:55 | disposition home or self-care (01) ==
LOC: FCATH 08:55
PROVIDERS: ATTEND Internal Medicine Cardiovascular Disease
PROC: 0JH602Z Insertion of Monitoring Device into Chest Subcutaneous Tissue and Fascia, Open Approach (ICD-10-PCS; principal; 2018-01-31)
DX: R55 Syncope and collapse (principal); I49.9 Cardiac arrhythmia, unspecified
CPT/HCPCS: C1764

== ENCOUNTER → 2018-05-18 | Outpatient (CLI) | payer OTHER, BC | LOC: BHFA 10:15 | PROVIDERS: ATTEND Internal Medicine Cardiovascular Disease | DX: R00.0 Tachycardia, unspecified (principal); Z95.0 Presence of cardiac pacemaker ==

== ENCOUNTER → 2018-09-16 | Outpatient (CLI) | payer OTHER, BC | LOC: FIMAGING 08:45 ==